=== PATIENT | male | born 1965 | race Caucasian/White ===

== ENCOUNTER 2017-05-16 22:04 | Inpatient (IN) | payer OTHER ==
[~2017-05-16] VITALS: Ht 185.4 cm; Wt 120.3 kg
--- NOTE | 2017-05-16 22:17 | ED CARDIAC/CP/PALPITATIONS ---
See Addendum History of Present Illness General Chief Complaint: Palpitations Stated Complaint: HEART RATE 177 Source: patient, family Exam Limitations: no limitations Vital Signs & Intake/Output Vital Signs & Intake/Output Vital Signs Date Time Temp Pulse Resp B/P B/P Pulse O2 O2 Flow FiO2 Mean Ox Delivery Rate 05/16 2314 116 117/59 05/16 2308 97.1 116 18 123/61 97 Nasal 2.0L Cannula 05/16 2306 116 18 123/61 05/16 2258 98 Nasal Cannula 05/16 2254 116 18 113/61 100 Nasal 2.0L Cannula 05/160 175 113/61 05/16 2239 124/71 05/16 2239 176 124/71 05/16 2209 98.0 175 24 140/101 98 Room Air ED Intake and Output 05/17 0000 05/16 1200 Intake Total 0 Output Total Balance 0 Intake, Oral 0 Patient 260 lb Weight Weight Reported by Patient Measurement Method Allergies Coded Allergies: oxycodone (ELEVATED HEART RATE 05/16/17) Reconcile Medications Aspirin (Ecotrin*) 81 MG TABLET.DR 1 TAB PO DAILY HEART/BP (Reported) Cholecalciferol (Vitamin D3) (Vitamin D) (Unknown Strength) CAPSULE (Unknown Dose) PO QPM SUPPLEMENT (Reported) Ezetimibe (Zetia) 10 MG TABLET 1 TAB PO DAILY CHOLESTEROL (Reported) Lisinopril 40 MG TABLET 1 TAB PO DAILY BP (Reported) Rosuvastatin Calcium (Crestor) 40 MG TABLET 1 TAB PO DAILY CHOLESTEROL ( Reported) Triage Nurses Notes Reviewed? yes Onset: Gradual Duration: constant Timing: recent history Location: substernal Radiation: no radiation HPI: Patient is a 52-year-old male with a past medical history significant for atrial fibrillation in which his provider contracting consultant is Dr. Jade in which in 2012 he had Maze procedure and REPAIR FOR mitral regurgitation who states that this past summer patient had reoccurrence of his atrial fibrillation was seen at [facility] and was safely discharge patient currently is on prophylactic aspirin history also includes hypertension currently on lisinopril and hyperlipidemia who presents emergency room stating that today he was in his normal state health patient went on the treadmill and was doing interval training's sessions where he noticed heart rate to be 180s he was on the treadmill for approximately 30 minutes patient return home and continue to have significantly elevated heart rate between 170 and 190 bpm patient also had gradual onset of chest heaviness and lightheaded sensation (Milton Murphy) Past History Travel History Traveled to [place] past 21 day No Medical History Any Pertinent Medical History? see below for history Neurological: NONE EENT: NONE Cardiovascular: AFIB, hypertension, hyperlipidemia Respiratory: NONE Gastrointestinal: NONE Hepatic: NONE Renal: NONE Musculoskeletal: NONE Psychiatric: NONE Endocrine: NONE Blood Disorders: NONE Cancer(s): NONE SLOT AMBASSADOR/Reproductive: NONE Surgical History Surgical History: MAZE Psychosocial History Who do you live with Patient/Self What is your primary language Venezuelan Tobacco Use: Never used ETOH Use: denies use Family History Hx Contributory? No (Milton Murphy) Review of Systems Review of Systems Constitutional: Reports: no symptoms. EENTM: Reports: no symptoms. Respiratory: Reports: see HPI. Cardiovascular: Reports: see HPI, chest pain. GI: Reports: no symptoms. Genitourinary: Reports: no symptoms. Musculoskeletal: Reports: no symptoms. Skin: Reports: no symptoms. Neurological/Psychological: Reports: no symptoms. Hematologic/Endocrine: Reports: no symptoms. Immunologic/Allergic: Reports: no symptoms. All Other Systems: Reviewed and Negative (Milton Murphy) Physical Exam Physical Exam General Appearance: anxious, obese Head: atraumatic Eyes: Bilateral: normal appearance. Ears, Nose, Throat: normal pharynx Neck: normal inspection Respiratory: normal breath sounds, chest non-tender Cardiovascular: tachycardia Gastrointestinal: normal bowel sounds, soft, non-tender Extremities: normal inspection, normal capillary refill, normal range of motion Skin: intact, normal color, warm/dry Core Measures ACS in differential dx? Yes CVA/TIA Diagnosis No Sepsis Present: No Sepsis Focused Exam Completed? No (Milton Murphy) Progress Differential Diagnosis: AMI, aortic dissection, atrial fibrillation, cholecystitis, CHF/pulm edema, costochondritis, hyperkalemia, hypovolemia, hyperthyroid, hyperventilation, intracranial hemorrhage, musculoskeletal pain, myocarditis, pancreatitis, pericarditis, pneumonia, pneumothorax, PSVT, pulmonary embolism, PUD/GERD, PVCs/PACs, respiratory failure, rib fracture, sepsis, unstable angina, V-fib/V-Tach, WPW syndrome Plan of Care: Orders Procedure Date/time Status Regular Diet 05/17 B Active OXYGEN SETUP (GEN) 05/17 2303 Active Saline Lock 05/17 2303 Active Admit to inpatient 05/16 230 Active Vital Signs 05/16 230 Active Activity/Ambulation 05/17 2303 Active Code Status 05/17 2303 Active Telemetry/Client Relationship Manager 05/16 2228 Active THYROID STIMULATING HORMONE 05/16 2228 Active TROPONIN LEVEL 05/16 2228 Active MAGNESIUM 05/16 2228 Active FREE T4 05/16 2228 Active D-DIMER 05/16 2228 Active COMPREHENSIVE METABOLIC PANEL 05/16 2228 Active CBC WITHOUT DIFFERENTIAL 05/16 2228 Active EKG 05/16 2204 Active Current Medications Sig/Michelle Start time Last Medication Dose Stop Time Status Admin Heparin Sodium 25,000 UNIT Q24H 05/16 230 AC 05/16 (Porcine) 2343 (Heparin) Sodium Chloride 500 ML Diltiazem HCl 125 MG Q24H 05/16 2244 AC 05/16 (Cardizem DRIP) 2256 Dextrose/Water 100 ML (Dextrose 5%) Laboratory Tests 05/17/17 0010: Sodium Pending, Potassium Pending, Chloride Pending, Carbon Dioxide Pending, Anion Gap Pending, BUN Pending, Creatinine Pending, BUN/Creatinine Ratio Pending , Glucose Pending, Calcium Pending, Magnesium Pending, Total Bilirubin Pending, AST Pending, ALT Pending, Alkaline Phosphatase Pending, Troponin I Pending, Total Protein Pending, Albumin Pending, Globulin Pending, Albumin/Globulin Ratio Pending, TSH Pending, Free T4 Pending, D-Dimer High Sensitivty Pending, CBC w Diff Pending, WBC Pending, RBC Pending, Hgb Pending, Hct Pending, MCV Pending, MCH Pending, MCHC Pending, RDW Pending, Plt Count Pending, MPV Pending Patient on initial examination was anxious and which initial EKG shows SVT at 175 bpm patient was immediately placed in room 5 monitoring manager placed blood pressure was normotensive initially I tried vagal response however SVT still continued, adenosine 6 mg was then administered no change, 12 mg of adenosine was administered with concerns of atrial flutter and concerns of RVR A. fib Cardizem istered patient had improvement in approximately 10 minutes and noted to be A. fib at 125 bpm At 2248 Cardizem drip was administered Discussed patient with Dr. Sorenson who advised patient to receive a second dose of Cardizem and anticoagulation, 0025 monitoring manager noted patient 86 bpm sinus rhythm Discussed hand off with - blood work still pending Initial ED EKG: svt 175 BPM Prior EKG: changed Hand-Off Endorsed To: Delta Parra MD Endorsed Time: 99 Pending: labs Comments: PATIENT: MILTON SINGLETARY PRESENT AGE: 52 PATIENT ACCOUNT NO: [id number] : 63 LOCATION: [facility] ORDERING PHYSICIAN: Milton GABRIEL SERVICE DATE: 05/16/17 EXAM TYPE: RAD - XRY-PORTABLE CHEST XRAY EXAMINATION: XR PORTABLE CHEST CLINICAL INFORMATION: SVT. Chest pain. COMPARISON: 06/11/2011 TECHNIQUE: Portable frontal view of the chest was obtained. FINDINGS: Cardiac lead overlies the chest. Median sternotomy wires appear intact. The lungs are well expanded. No consolidation, edema, or effusion. No pneumothorax. Stable prominence of the cardiac silhouette. Radiopaque anchors overlie the right glenoid. IMPRESSION: Stable prominence of the cardiac silhouette. No acute pulmonary findings. DICTATED BY: Shabbir Goodman MD DATE/TIME DICTATED:05/16/172342 WEB MARKETING MANAGER:JORJE DATE/TIME TRANSCRIBED:05/16/172342 (Milton Murphy) Departure Departure Disposition: STILL A PATIENT Condition: Guarded Clinical Impression Primary Impression: Atrial fibrillation, rapid Secondary Impressions: Chest pain Referrals: Donnell Fry MD Departure Forms: Customer Survey General Discharge Information Admission Note Documentation of Exam: Documentation of any treatments & extenuating circumstances including Concerns Regarding Discharge (functional status, medication knowledge or non-compliance, living conditions, etc.) that warrant an admission rather than observation: [ Patient requires cardiology consultation telemetry monitoring anticoagulation antidysrhythmic medications possible echocardiogram repeat labs] (Milton Murphy) PA/CLAMPER Co-Sign Statement Statement: ED Attending supervision documentation- x I saw and evaluated the patient. I have also reviewed all the pertinent lab results and diagnostic results. I agree with the findings and the plan of care as documented in the PA's/CLAMPER's documentation. SVT response to adenocard revealing afib/flutter with RVR [] I have reviewed the ED Record and agree with the PA's/CLAMPER's documentation. [] Additions or exceptions (if any) to the PAs/CLAMPER's note and plan are summarized below: [] (Fidel FOSTER,Delta) Critical Care Note Critical Care Note Critical Care Time: 75-104 min (Kamryn GABRIEL,Milton)
[2017-05-16] MEDS ORDERED: ZETIA10 M1 PO (22:37)
[2017-05-16] MEDS ORDERED: LISINOPRIL40 M1 PO (22:37)
[2017-05-16] MEDS ORDERED: ASPIRIN EC81 M1 PO (22:37)
[2017-05-16] MEDS ORDERED: CRESTOR40 M2 PO (22:37)
[2017-05-16] MEDS ORDERED: VITAMIN D2000 UNIT PO (22:38)
--- NOTE | 2017-05-16 23:55 | RADIOLOGY REPORT ---
EXAMINATION: XR PORTABLE CHEST CLINICAL INFORMATION: SVT. Chest pain. COMPARISON: 06/11/2011 TECHNIQUE: Portable frontal view of the chest was obtained. FINDINGS: Cardiac lead overlies the chest. Median sternotomy wires appear intact. The lungs are well expanded. No consolidation, edema, or effusion. No pneumothorax. Stable prominence of the cardiac silhouette. Radiopaque anchors overlie the right glenoid. IMPRESSION: Stable prominence of the cardiac silhouette. No acute pulmonary findings.
[2017-05-17 00:37] LABS: ABSOLUTE BASOPHIL COUNT 0 /CUMM (0.0-0.2); ABSOLUTE EOSINOPHIL COUNT 0.1 /CUMM (0.0-0.7); ABSOLUTE GRANULOCYTE CT 6.6 /CUMM (1.4-6.5); ABSOLUTE LYMPH COUNT 2.1 /CUMM (1.2-3.4); ABSOLUTE MONOCYTE COUNT 0.6 /CUMM (0.10-0.60); BASOPHIL % 0.3 % (0.0-2.0); EOSINOPHIL % 1.1 % (0-5); HEMATOCRIT 40.8 % (42-52); MEAN CORPUSCULAR HGB 30.1 PG (27.0-31.0); MEAN CORPUSCULAR HGB CONC 33.7 G/DL (33.0-37.0); MEAN CORPUSCULAR VOLUME 89.4 FL (80.0-94.0); MEAN PLATELET VOLUME 7.8 FL (7.4-10.4); PLATELET COUNT 268 /CUMM (130-400); RBC DISTRIBUTION WIDTH 13.3 % (11.5-14.5); RED BLOOD CELL CT 4.57 /CUMM (4.70-6.10); WHITE BLOOD CELL COUNT 9.4 /CUMM (4.8-10.8)
--- NOTE | 2017-05-17 00:41 | History & Physical ---
Rohith FOSTER,[facility] 05/17/17 0040: General Information and HPI MD Statement: I have seen and personally examined MILTON SINGLETARY and documented this H&P. The patient is a 52 year old M who presented with a patient stated chief complaint of [tachycardia after gym]. Source of Information: patient Exam Limitations: no limitations History of Present Illness: 52-year-old male with a past medical history of hypertension hyperlipidemia and A. fib presenting for persisting tachycardia after going to gym. The patient states that he has been on a new exercise regimen for the past 2 months and was cleared by cardiology. The patient states that he was doing a high intensity interval training today when he ran on the treadmill at a 5. The patient checked his heart rate and was 189 and continued to be elevated above 180 while his walking. He also states that he started having chest tightness after exercising. States the pain is nonradiating. Patient checked his heart rate at home and listen to it using his own stethoscope a calculated it to be 130s to 140s beats per minute. Patient states that he then was sounded couch and continued to have some chest tightness which did not resolve. As his symptoms did not resolve this undergoes emergency department. The patient denies any palpitations, lightheadedness, vision changes, abdominal pain, nausea vomiting, or changes in elimination. Of note the patient did state that he had coffee before going to gym. He also states he had a couple alcohol checks yesterday. He was last admitted in August/September for A. fib secondary to work stress. Allergies/Medications Allergies: Coded Allergies: oxycodone (ELEVATED HEART RATE 05/16/17) Home Med list Aspirin (Ecotrin*) 81 MG TABLET.DR 1 TAB PO DAILY HEART/BP (Reported) Cholecalciferol (Vitamin D3) (Vitamin D) 2,000 UNIT CAPSULE 1,000 IU PO QPM SUPPLEMENT (Reported) Ezetimibe (Zetia) 10 MG TABLET 1 TAB PO DAILY CHOLESTEROL (Reported) Lisinopril 40 MG TABLET 1 TAB PO DAILY BP (Reported) Rosuvastatin Calcium (Crestor) 40 MG TABLET 1 TAB PO DAILY CHOLESTEROL ( Reported) Past History Travel History Traveled to [place] past 21 day No Medical History Neurological: NONE EENT: NONE Cardiovascular: AFIB, hypertension, hyperlipidemia Respiratory: NONE Gastrointestinal: NONE Hepatic: NONE Renal: NONE Musculoskeletal: NONE Psychiatric: NONE Endocrine: NONE Blood Disorders: NONE Cancer(s): NONE BREAST SPLITTER/Reproductive: NONE Surgical History Surgical History: MAZE Past Family/Social History Psychosocial History ETOH Use: denies use Review of Systems Review of Systems Constitutional: Reports: see HPI. Cardiovascular: Reports: see HPI, chest pain. Exam & Diagnostic Data Last 24 Hrs of Vital Signs/I&O Vital Signs Date Time Temp Pulse Resp B/P B/P Pulse O2 O2 Flow FiO2 Mean Ox Delivery Rate 05/17 0314 98.6 84 20 124/76 95 Room Air 05/17 0141 83 16 114/62 98 Nasal 2.0L Cannula 05/16 2314 116 117/59 05/16 2308 97.1 116 18 123/61 97 Nasal 2.0L Cannula 05/16 2306 116 18 123/61 05/16 2258 98 Nasal Cannula 05/16 2254 116 18 113/61 100 Nasal 2.0L Cannula 05/16 2240 175 113/61 05/16 2239 124/71 05/16 2239 176 124/71 05/16 2209 98.0 175 24 140/101 98 Room Air Intake & Output 05/17 0800 05/17 0000 05/16 1600 Intake Total 0 Output Total Balance 0 Intake, Oral 0 Patient 265 lb 260 lb Weight Weight Bed scale Reported by Patient Measurement Method Physical Exam General Appearance Alert, Oriented X3, Cooperative, No Acute Distress, Pt requestin/hoping to be discharged tomorrow Cardiovascular Regular Rate, Normal S1, Normal S2 Lungs Clear to Auscultation, Normal Air Movement Abdomen Normal Bowel Sounds, Soft, No Tenderness Neurological cranial nerves II through XII grossly intact Extremities trace lower extremity edema bilaterally Last 24 Hrs of Labs/Edgard: Laboratory Tests 05/17/17 0010: Anion Gap 14, Estimated GFR > 60, BUN/Creatinine Ratio 20.0, Glucose 126 H, Calcium 9.5, Magnesium 2.1, Total Bilirubin 0.8, AST 36, ALT 73 H, Alkaline Phosphatase 78, Troponin I 0.03, Total Protein 6.4, Albumin 3.9, Globulin 2.5, Albumin/Globulin Ratio 1.6, TSH 3.020, Free T4 1.62, D-Dimer High Sensitivty < 200, CBC w Diff NO MAN DIFF REQ, RBC 4.57 L, MCV 89.4, MCH 30.1, MCHC 33.7, RDW 13.3, MPV 7.8, Gran % 70.0, Lymphocytes % 22.0, Monocytes % 6.6, Eosinophils % 1.1, Basophils % 0.3, Absolute Granulocytes 6.6 H, Absolute Lymphocytes 2.1, Absolute Monocytes 0.6, Absolute Eosinophils 0.1, Absolute Basophils 0 Assessment/Plan Assessment: A: 52-year-old male with a past medical history of hypertension hyperlipidemia and A. fib presenting for persistent tachycardia after going to the gym. P: #afib HR 180+ reported per patient s/p workout. HR 130-140 self reported at home HR now controlled in the 70s-80s -cont heparin and dilitiazem drip -cont aspirin #hld -cont atorvastain, ezetimbe -cont aspirin for cardiac health #htn -cont lisinopril #DVT prophylaxis - heparin drip #FULL CODE As Ranked By This Provider Problem List: 1. Atrial fibrillation, rapid Core Measures/Misc (12/02) Acute Coronary Syndrome ACS Diagnosis: No Congestive Heart Failure Congestive Heart Failure Diagnosis No Cerebrovascular Accident CVA/TIA Diagnosis: No VTE (View Protocol) VTE Risk Factors Acute Medical Illness No Mechanical VTE Prophylaxis d/t Other No VTE Pharm Prophylaxis d/t NA PharmProphylax ordered Sepsis (View protocol) Sepsis Present: No Doc Pritchard 05/17/17 0508: Resident Review Statement Resident Statement: examined this patient, discussed with bakery pastry internship, agreed with bakery pastry internship, amended to note Other Findings: Mr Singletary is a 52-year-old gentleman who was known to be in his usual state of health until a few hours prior to presentation. He is a past medical history of atrial fibrillation (diagnosed in 2011, subsequently underwent radiofrequency ablation, Maze procedure, mitral valve surgery in 2012), hypertension, TIA. He was admitted to [facility] in September 2016, for treatment of atrial fibrillation. He is currently only on aspirin daily, and was recommended to start exercising as tolerated by his vmware architect. While he was working out on a treadmill (high intensity training mode, which is unsual as compared to his daily work out), he noticed his heart rate was in the range of 180s persistently even after resting for 30'-1 hour. He did not have any symptoms at the time. After returning home, he continued to have heart rate in the range of 120-180s at rest, and had chest heaviness located in the center of the chest, no radiation, no association with position or respiration, relieved after receiving adenosine in the ED. He did not have any lightheadedness, vision changes, neurological deficits, bladder and bowel incontinence. Reported a few extra drinks of alcohol, caffeine in the last 24 hours which is unusual for him. Also had upper respiratory tract infection, likely viral a few days prior to this episode. He is a nonsmoker, and no substance abuse. At the time of admission, vitals-temperature 90.8, pulse rate 175, blood pressure 140/101, pulse ox 98% on room air. At the time of presentation, he was found to have had supraventricular tachycardia, which responded to adenosine 6 mg, 12 mg; revealed underlying atrial fibrillation. He was also given Cardizem bolus, and started on Cardizem drip after which the rhythm was noted to be normal sinus on monitor. There is no record of EKG that was obtained at that time. Pertinent labs: WBC 9.4 Hemoglobin 13.7 Potassium 3.9, magnesium 2.1, bicarbonate 22 BUN 18, creatinine 0.9 Troponin 0.03 TSH 3.02, free T4 1.62. cxr- Stable prominence of the cardiac silhouette. No acute pulmonary findings. Etiology that resulted in an acute onset of atrial fibrillation even after a Maze procedure, is likely multifactorial- recent use of alcohol, viral illness, caffeine and unsual high interval training. BP remained stable, and was started on cardizem drip for rate control. He subsequently cardioverted, and was started on cardizem. Last echocardiogram was done in 2011, as per our records which revealed normal EF, but had trace pedal edema on examination. [id number] score of 1 for which he could be started on AC, and did not have enough data to calculate the HASBLED. TSH, and FT4 wnl. Plan: 1. Paroxymsmal Afib- should be continued on cardizem, and restart oral cardizem or a beta william in the am. Monitor BP closely while he is on telemetry. Obtain records from the vmware architect. Check Echocardiogram. At this time, would continue anticoagulation- iv heparin until assessed by the vmware architect since he had a maze procedure, and surgery of mitral appendage. Check serial cardiac enzymes and electrocardiograms. 2. HTN- continue lisinipril at his home dose. 3. HLD- would continue statin and zetia at this time. Housekeeping- 1. DVT PPx- heparin iv ( change to sc heparin, if discontinued ) 2. Lines- peripheral 3. Code - Full code. 4. Diet- heart healthy diet. Plan discussed w/ the vmware architect Dr Sorenson.
[2017-05-17 03:14] VITALS: BP 124/76
[2017-05-17 06:49] VITALS: BP 98/72
--- NOTE | 2017-05-17 07:21 | PN- Housestaff ---
Subjective Follow-up For: Paroxysmal Afib Tele-Events Since Last Visit: SR HR 40-86 Subjective: No complaints. No acute events overnight. He denies SOB, palpitations, CP, nausea, vomiting Review of Systems Constitutional: Reports: see HPI. Objective Last 24 Hrs of Vital Signs/I&O Vital Signs Date Time Temp Pulse Resp B/P B/P Pulse O2 O2 Flow FiO2 Mean Ox Delivery Rate 05/17 0649 97.6 74 20 98/72 95 Room Air 05/17 0314 98.6 84 20 124/76 95 Room Air 05/17 0141 83 16 114/62 98 Nasal 2.0L Cannula 05/16 2314 116 117/59 05/16 2308 97.1 116 18 123/61 97 Nasal 2.0L Cannula 05/16 2306 116 18 123/61 05/16 2258 98 Nasal Cannula 05/16 2254 116 18 113/61 100 Nasal 2.0L Cannula 05/16 2240 175 113/61 05/16 2239 124/71 05/16 2239 176 124/71 05/16 2209 98.0 175 24 140/101 98 Room Air Intake & Output 05/17 1600 05/17 0800 05/17 0000 Intake Total 340 0 Output Total Balance 340 0 Intake, IV 100 Intake, Oral 240 0 Patient 265 lb 260 lb Weight Weight Bed scale Reported by Patient Measurement Method Physical Exam General Appearance: Alert, Oriented X3, Cooperative, No Acute Distress Cardiovascular: Regular Rate, Normal S1, Normal S2, No Murmurs, thoracotomy scar Lungs: Clear to Auscultation, Normal Air Movement Extremities: Trace LLE edema Current Medications: Current Medications Sig/Michelle Start time Last Medication Dose Route Stop Time Status Admin Acetaminophen 650 MG Q8P PRN 05/17 0200 AC PO Acetaminophen 1,000 MG BID PRN 05/17 0200 AC IV Adenosine 12 MG ONCE ONE 05/16 2244 DC 05/16 IV 05/16 2245 230 Adenosine 6 MG ONCE ONE 05/16 2229 DC 05/16 IV 05/16 2230 230 Adenosine 0 .STK-MED ONE 05/17 2227 DC IV Aspirin Buffered 81 MG DAILY 05/17 1000 AC PO Atorvastatin Calcium 40 MG 1700 05/17 1700 AC PO Diltiazem HCl 0 .STK-MED ONE 05/16 2310 DC .ROUTE Diltiazem HCl 10 MG ONCE ONE 05/16 2299 DC 05/16 IV PUSH 05/16 2300 230 Diltiazem HCl 10 MG ONCE ONE 05/16 2244 DC 05/16 IV PUSH 05/16 Diltiazem HCl 125 MG Q24H 05/16 2244 AC 05/16 Dextrose/Water 100 ML IV 225 Diltiazem HCl 0 .STK-MED ONE 05/16 2240 DC IV Diltiazem HCl 0 .STK-MED ONE 05/16 2240 DC .ROUTE Ezetimibe 10 MG DAILY 05/17 1000 AC PO Heparin Sodium 0 .STK-MED ONE 05/16 2337 DC (Porcine) .ROUTE Heparin Sodium 5,000 UNIT ONCE ONE 05/16 2299 DC 05/16 (Porcine) IV 05/16 Heparin Sodium 25,000 UNIT Q24H 05/16 2299 AC 05/16 (Porcine) IV 234 Sodium Chloride 500 ML Lisinopril 40 MG DAILY 05/17 1000 AC PO Last 24 Hrs of Lab/Edgard Results Last 24 Hrs of Labs/Mics: Laboratory Tests 05/17/17 0621: Sodium Pending, Potassium Pending, Chloride Pending, Carbon Dioxide Pending, Anion Gap Pending, BUN Pending, Creatinine Pending, BUN/Creatinine Ratio Pending , CBC w Diff Pending, WBC Pending, RBC Pending, Hgb Pending, Hct Pending, MCV Pending, MCH Pending, MCHC Pending, RDW Pending, Plt Count Pending, MPV Pending 05/17/17 0200: PT Cancelled, INR Cancelled 05/17/17 0010: Anion Gap 14, Estimated GFR > 60, BUN/Creatinine Ratio 20.0, Glucose 126 H, Calcium 9.5, Magnesium 2.1, Total Bilirubin 0.8, AST 36, ALT 73 H, Alkaline Phosphatase 78, Troponin I 0.03, Total Protein 6.4, Albumin 3.9, Globulin 2.5, Albumin/Globulin Ratio 1.6, TSH 3.020, Free T4 1.62, D-Dimer High Sensitivty < 200, CBC w Diff NO MAN DIFF REQ, RBC 4.57 L, MCV 89.4, MCH 30.1, MCHC 33.7, RDW 13.3, MPV 7.8, Gran % 70.0, Lymphocytes % 22.0, Monocytes % 6.6, Eosinophils % 1.1, Basophils % 0.3, Absolute Granulocytes 6.6 H, Absolute Lymphocytes 2.1, Absolute Monocytes 0.6, Absolute Eosinophils 0.1, Absolute Basophils 0 Orders ECHO Findings: CONCLUSIONS 1. Normal EF of 60%. 2. Moderate left atrial enlargement. 3. Mild mitral regurgitation. A mitral annular ring is noted. 4. Trace to mild tricuspid regurgitation. 5. Trace pulmonic regurgitation. Claudio Sorenson M.D. (Electronically Signed) Final Date: 17 May 2017 13:27 Assessment/Plan Assessment: 52-year-old male with a past medical history of hypertension hyperlipidemia and A. fib presenting for persisting tachycardia after 30 minutes of exercising on a treadmill with a recorded HR 189. Paroxymsmal Afib with RVR Patient reports after a TIA he had a maze procedure at [facility] (2012) + MR annuloplasty ring by Dr. Atkins. At that time he was subsequently taken off anticoagulation and antiarrhythmic. He is followed by Dr. Jade in [place], [place]. He has been in normal sinus on telemetry monitoring * Continue telemetry monitoring * Discontinue IV Cardizem at 2.5 mcg * Discontinue IV heparin * Continue atorvastatin, lisinopril, aspirin, ezetimibe * ECHO showed mModerate left atrial enlargement with an EF of 60% * Start Sotalol 40 mg BID * DC today if no cardiac events in next 2 hours after stopping Cardizem * Called patient intellectual property lawyer-Dr. Jade but will not be in until next Saturday. Patient informed. Problem List: 1. Atrial fibrillation, rapid Pain Ratin Pain Location: NA Pain Goal: Remain pain free Pain Plan: NA Tomorrow's Labs & Rationales: None
[2017-05-17 08:08] LABS: ABSOLUTE BASOPHIL COUNT 0 /CUMM (0.0-0.2); ABSOLUTE EOSINOPHIL COUNT 0.1 /CUMM (0.0-0.7); ABSOLUTE GRANULOCYTE CT 3.3 /CUMM (1.4-6.5); ABSOLUTE LYMPH COUNT 2.4 /CUMM (1.2-3.4); ABSOLUTE MONOCYTE COUNT 0.5 /CUMM (0.10-0.60); BASOPHIL % 0.6 % (0.0-2.0); EOSINOPHIL % 1.9 % (0-5); GRANULOCYTE % 52.7 % (42.2-75.2); HEMATOCRIT 39.1 % (42-52); MEAN CORPUSCULAR HGB 30.2 PG (27.0-31.0); MEAN CORPUSCULAR HGB CONC 33.8 G/DL (33.0-37.0); MEAN CORPUSCULAR VOLUME 89.4 FL (80.0-94.0); MEAN PLATELET VOLUME 7.9 FL (7.4-10.4); PLATELET COUNT 240 /CUMM (130-400); RBC DISTRIBUTION WIDTH 13.4 % (11.5-14.5); RED BLOOD CELL CT 4.37 /CUMM (4.70-6.10); WHITE BLOOD CELL COUNT 6.3 /CUMM (4.8-10.8)
[2017-05-17 09:50] LABS: PT 11.8 SEC (9.4-12.5); PTT 40 SEC (25-37)
--- NOTE | 2017-05-17 13:18 | Cons- Cardiology ---
General Information and HPI Consulting Request Date of Consult: 05/17/17 Requested By: Delta FOSTER PHD,Claudio Willson History of Present Illness: Damien is a 52 year old male with history of hypertension, dyslipidemia and atrial tachycardia status post a partially effective ablation for this dysrhythmia. About five years ago, following a TIA in the setting of atrial fibrillation, he also underwent a MAZE procedure with removal of the atrial appendage. A mitral valve ring was placed at that time for mitral regurgitation. Damien was in his usual state of health until yesterday when he noticed a rapid heart rate during and following a workout at the gym. He has been consuming alcohol the evening prior but he typically does not overindulge. In the setting of this rapid heart rate the patient did notice a mild and non-radiating midsternal chest pressure. Otherwise he denies any shortness of breath or lightheadedness and is completely incognizant of any palpitations. The patient was given adenosine in the ER with little response. He was also given Cardizem which slowed his heart rate revealing atrial fibrillation. He subsequently converted to a sinus rhythm and now feels back to jennifer. This patient has undergone a partially successful atrial fibrillation ablation in the past. About five years ago he had a MAZE procedure with resection of his left atrial appendage and placement of a mitral valve ring. He has been doing well since that time and is vigorously active at his baseline. Allergies/Medications Allergies: Coded Allergies: oxycodone (ELEVATED HEART RATE 05/16/17) Home Med List: Aspirin (Ecotrin*) 81 MG TABLET.DR 1 TAB PO DAILY HEART/BP (Reported) Cholecalciferol (Vitamin D3) (Vitamin D) 2,000 UNIT CAPSULE 1,000 IU PO QPM SUPPLEMENT (Reported) Ezetimibe (Zetia) 10 MG TABLET 1 TAB PO DAILY CHOLESTEROL (Reported) Lisinopril 40 MG TABLET 1 TAB PO DAILY BP (Reported) Rosuvastatin Calcium (Crestor) 40 MG TABLET 1 TAB PO DAILY CHOLESTEROL ( Reported) Review of Systems Review of Systems: A twelve point review of systems is unremarkable. 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 Father: coronary artery disease in his 50's Psychosocial History Where Do You Live? Home Smoking Status: Never Smoked ETOH Use: occasional use Exam & Diagnostic Data Vital Signs and I&O Vital Signs Date Time Temp Pulse Resp B/P B/P Pulse O2 O2 Flow FiO2 Mean Ox Delivery Rate 05/17 0649 97.6 74 20 98/72 95 Room Air 05/17 0314 98.6 84 20 124/76 95 Room Air 05/17 0141 83 16 114/62 98 Nasal 2.0L Cannula 05/16 2314 116 117/59 05/16 2308 97.1 116 18 123/61 97 Nasal 2.0L Cannula 05/16 2306 116 18 123/61 05/16 2258 98 Nasal Cannula 05/16 2254 116 18 113/61 100 Nasal 2.0L Cannula 05/16 2240 175 113/61 05/16 2239 124/71 05/16 2239 176 124/71 05/16 2209 98.0 175 24 140/101 98 Room Air Intake & Output 05/17 1600 05/17 0800 05/17 0000 05/16 1600 05/16 0800 05/16 0000 Intake Total 340 0 Output Total Balance 340 0 Intake, IV 100 Intake, Oral 240 0 Patient 265 lb 260 lb Weight Weight Bed scale Reported by Patient Measurement Method Physical Exam: General: WD/overweight male in NAD; alert and oriented x 3 HEENT: NC/AT, PERRL, EOMI Neck: no JVD, no carotid bruit Heart: RRR w/o murmur Lungs: clear bilaterally ABdomen: soft, obese, NT, +ve bowel sounds Extremities: 1+ bilateral leg edema Assessment/Plan Assessment/Plan * This patient had atrial fibrillation with severely increased heart rate. I believe he also presented to the ER another time this year with a similar issue. We will begin Sotolol 40mg BID to help maintain a sinus rhythm and to control his heart rate a bit better if he again goes into atrial fibrillation. Stop cardizem drip. * The patient has normal TFT's and his echocardiogram showed a normal EF with left atrial enlargement. * The patient is advised to avoid indiscretions with alcohol. * Okay to discharge to home if his heart rate is in the normal range after stopping IV Cardizem for two hours. 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 Consult Acknowledgment - Thank you for your consult request.
--- NOTE | 2017-05-17 13:28 | ECHOCARDIOGRAM REPORT ---
MILTON SINGLETARY Age: 52 : 1965 Gender: M Exam Date: 05/17/2017 08:56 Exam Location: [address] Ht (in): 73 Wt (lb): 260 BSA: 2.50 BP: 98 / 72 Ordering Physician: Doc Pritchard MD Referring Physician: Doc Pritchard MD Technologist: Eduin Machado [facility] Room Number: 189-1 Indications: AFIB/FLUTTER Rhythm: junctional rhythm Technical Quality: fair FINDINGS Left Ventricle Normal left ventricular size, wall thickness and systolic function with no obvious regional wall motion abnormalities. The ejection fraction is visually estimated at 60%. Right Ventricle The right ventricle is normal in size and function. Right Atrium The right atrium is normal in size. Left Atrium The left atrium is moderately enlarged. The interatrial septum is intact. Mitral Valve The mitral valve has an annular ring with normal function. There is mild mitral regurgitation. Aortic Valve Structurally normal aortic valve without significant sclerosis or stenosis. There is no aortic regurgitation. Tricuspid Valve The tricuspid valve is normal in structure and function. There is trace to mild tricuspid regurgitation. Pulmonary artery systolic pressure is normal. Pulmonic Valve Structurally normal pulmonic valve. There is trace pulmonic regurgitation. Pericardium Normal pericardium without effusion. No pleural effusion. Great Vessels Normal aortic root dimension. The aortic arch and great vessels are well seen and are normal. CONCLUSIONS 1. Normal EF of 60%. 2. Moderate left atrial enlargement. 3. Mild mitral regurgitation. A mitral annular ring is noted. 4. Trace to mild tricuspid regurgitation. 5. Trace pulmonic regurgitation. Claudio Sorenson M.D. (Electronically Signed) Final Date: 17 May 2017 13:27 MEASUREMENTS (Male / Female) Normal Values 2D ECHO LV Diastolic Diameter PLAX 4.8 cm 4.2 - 5.9 / 3.9 - 5.3 cm LV Systolic Diameter PLAX 3.2 cm 2.1 - 4.0 cm LV Fractional Shortening PLAX 33.3 % 25 - 46 % LV Ejection Fraction 2D Teich 61.9 % IVS Diastolic Thickness 0.9 cm LVPW Diastolic Thickness 0.9 cm LV Relative Wall Thickness 0.4 RV Internal Dim ED PLAX 3.8 cm 1.9 - 3.8 cm LVOT Diameter 2.4 cm Aortic Root Diameter 3.4 cm LA Systolic Diameter LX 4.7 cm 3.0 - 4.0 / 2.7 - 3.8 cm Ascending Aorta Diameter 3.3 cm DOPPLER AV Peak Velocity 142.0 cm/s AV Peak Gradient 8.1 mmHg AV Mean Velocity 83.5 cm/s AV Mean Gradient 4.0 mmHg AV Velocity Time Integral 24.5 cm LVOT Peak Velocity 129.0 cm/s LVOT Peak Gradient 6.7 mmHg LVOT Mean Velocity 73.0 cm/s LVOT Mean Gradient 3.0 mmHg LVOT Velocity Time Integral 23.9 cm LVOT Stroke Volume 108.1 cm AV Area Cont Eq vti 4.4 cm AV Area Cont Eq pk 4.1 cm MV Peak Velocity 189.0 cm/s MV Peak Gradient 14.3 mmHg MV Mean Velocity 115.0 cm/s MV Mean Gradient 6.0 mmHg Mitral E Point Velocity 198.5 cm/s Mitral A Point Velocity 102.0 cm/s Mitral E to A Ratio 1.9 MV PHT Velocity 191.0 cm/s MV Deceleration Hardin 388.0 cm/s MV Pressure Half Time 147.7 ms MV Area PHT 1.5 cm MV Deceleration Time 465.0 ms TR Peak Velocity 271.0 cm/s TR Peak Gradient 29.4 mmHg Right Atrial Pressure 5.0 mmHg Pulmonary Artery Systolic Pressu 34.4 mmHg Right Ventricular Systolic Press 34.4 mmHg PV Peak Velocity 97.9 cm/s PV Peak Gradient 3.8 mmHg PV Mean Velocity 64.4 cm/s PV Mean Gradient 2.0 mmHg PV Velocity Time Integral 19.0 cm LV E' Lateral Velocity 6.1 cm/s Mitral E to LV E' Lateral Ratio 32.3 LV E' Septal Velocity 7.3 cm/s Mitral E to LV E' Septal Ratio 27.2
--- NOTE | 2017-05-17 13:38 | Patient Discharge Instructions ---
Discharge Instructions General Discharge Information You were seen/treated for: Atrial fibrillation with rapid ventricular rate You had these procedures: none Special Instructions: Follow up with your counter intelligence agent upon discharge Follow up with your PCP within 1 week after discharge Diet Recommended Diet: Heart Healthy Acute Coronary Syndrome Inclusion Criteria At DC or during hospital stay patient has or had the following: ACS DIAGNOSIS No Discharge Core Measures Meds if any: Prescribed or Continued at Discharge Meds if any: NOT Prescribed or Continued at Discharge Congestive Heart Failure Inclusion Criteria At DC or during hospital stay patient has or had the following: CHF DIAGNOSIS No Discharge Core Measures Meds if any: Prescribed or Continued at Discharge Meds if any: NOT Prescribed or Continued at Discharge Cerebrovascular accident Inclusion Criteria At DC or during hospital stay patient has or had the following: CVA/TIA Diagnosis No Discharge Core Measures Meds if any: Prescribed or Continued at Discharge Meds if any: NOT Prescribed or Continued at Discharge Venous thromboembolism Inclusion Criteria VTE Diagnosis No VTE Type NONE VTE Confirmed by (Test) NONE Discharge Core Measures - Per Current guidelines, there needs to be overlap - treatment for the first 5 days of Warfarin therapy. - If discharged on Warfarin prior to 5 days of - overlap therapy, the patient will need to be - assessed for post discharge needs including - *Post discharge parental anticoagulation - *Warfarin and/or parental anticoagulation education - *Follow up date to check INR post discharge At least 5 days overlap therapy as Inpatient No Meds if any: Prescribed or Continued at Discharge Note: Overlap Therapy is Warfarin and Anticoagulant Meds if any: NOT Prescribed or Continued at Discharge
[2017-05-17 14:32] VITALS: BP 138/80
[2017-05-17] MEDS ORDERED: BETAPACE80 MG PO ×2 (15:26→19:10)
[2017-05-17 18:37] VITALS: BP 116/80
--- NOTE | 2017-05-20 07:49 | Discharge Summary ---
Hospital Course Allergies: Coded Allergies: oxycodone (ELEVATED HEART RATE 05/16/17) Discharge Instructions Medications at Discharge Discharge Medications: Continue taking these medications: Lisinopril (Lisinopril) 40 MG TABLET 1 Tablet ORAL DAILY Comments: Last Taken:05/17/17 Time:6:30 PM Rosuvastatin Calcium (Crestor) 40 MG TABLET 1 Tablet ORAL DAILY Comments: Last Taken:NOT GIVEN IN THE HOSPITAL Time: Aspirin (Ecotrin*) 81 MG TABLET.DR 1 Tablet ORAL DAILY Ezetimibe (Zetia) 10 MG TABLET 1 Tablet ORAL DAILY Comments: Last Taken:05/17/17 Time:6;30 PM Cholecalciferol (Vitamin D3) (Vitamin D) 2,000 UNIT CAPSULE 1,000 International Unit ORAL Every night Comments: Last Taken:NOT GIVEN IN THE HOSPITAL Time: Start taking the following new medications: Sotalol (Betapace) 80 MG TABLET 0.5 Tablet ORAL TWICE DAILY Qty = 15 No Refills Comments: Last Taken:/ Time:5:10 PM
== END 2017-05-17 19:25 | DRG 310 ==
LOC: ERH 22:04 → ERHI 23:04 → 1NO 23:04 → ENRESERV 05-17 01:37 → 1NO 05-17 02:34 → ENPENDDIS 05-17 18:01 → 1NO 05-17 19:25
PROVIDERS: Internal Medicine Endocrinology, Diabetes & Metabolism; Internal Medicine Interventional Cardiology; Physician Assistant
DX: I48.0 Paroxysmal atrial fibrillation (principal); E78.5 Hyperlipidemia, unspecified; I10 Essential (primary) hypertension; Z86.73 Personal history of transient ischemic attack (TIA), and cerebral infarction without residual deficits
CPT/HCPCS: ERO; 36592; 71045; 82436; 93005; 93010; 93306; J0153; J1644